=== PATIENT | male | born 1930 | race Caucasian/White ===

== ENCOUNTER → 2017-04-13 | Outpatient (CLI) | payer MEDICARE, OTHER ==
[~2017-04-13] MED LIST: ALBU18HF INH; ALBU2.5V NEB; ALBU6.7H INH; ALPR0.5T6 PO; AMLO1TAB5 PO; AMLO5TAB2 PO; AMLO5TAB4 PO; ASPI-496 PO; ASPI-515 PO; ASPI-650 PO; ATOR40TA78 PO; BUDE0.5A INH; CALC1TAB PO; CALC200T24 PO; DONE10TA7 PO; DOXY100T PO; DUTA0.5C PO; FENO145T32 PO; FURO20TA3 PO; FURO40TA6 PO; LEVO100T41 PO; LEVO125T5 PO; METO100T5 PO; MULT-717 PO; OMEG1CAP2 PO; OXYC-302 PO; PANT40TA3 PO; POLY17PO3 PO; POTA10TA11 PO; POTA10TA5 PO; POTA20TA14 PO; POTA20TA6 PO; RIVA1PAT22 TD; SACU1TAB4 PO; SENN1TAB67 PO; SENN1TAB7 PO; SITA100T PO; TAMS0.4C2 PO; TELM80TA PO; VENL150C PO; VENL50TA2 PO
== END | disposition home or self-care (01) ==
LOC: CFH 12:32
PROVIDERS: ATTEND Internal Medicine Cardiovascular Disease
DX: I51.7 Cardiomegaly (principal); I08.1 Rheumatic disorders of both mitral and tricuspid valves; I37.1 Nonrheumatic pulmonary valve insufficiency; E11.9 Type 2 diabetes mellitus without complications; I10 Essential (primary) hypertension; E78.5 Hyperlipidemia, unspecified
CPT/HCPCS: 93306

== ENCOUNTER → 2018-05-08 | Outpatient (CLI) | payer MEDICARE, OTHER ==
[~2018-05-08] MED LIST changes: -LEVO100T41 PO; +LEVO100T74 PO
== END | disposition home or self-care (01) ==
LOC: MRI 11:03
PROVIDERS: ATTEND Nurse Practitioner Family
DX: M47.896 Other spondylosis, lumbar region (principal); Z91.81 History of falling
CPT/HCPCS: 72110; 72220

== ENCOUNTER → 2018-08-09 | Outpatient (CLI) | payer MEDICARE, OTHER ==
[~2018-08-09] MED LIST changes: -AMLO5TAB2 PO; +AMLO5TAB7 PO; -SENN1TAB7 PO; +SENN1TAB8 PO
== END | disposition home or self-care (01) ==
LOC: CFH 11:53
PROVIDERS: ATTEND Nurse Practitioner Family
DX: N64.4 Mastodynia (principal); N64.59 Other signs and symptoms in breast
CPT/HCPCS: 77066

== ENCOUNTER 2020-04-16 10:03 | Emergency (ER) | payer MEDICARE, OTHER ==
[~2020-04-16] VITALS: Ht 182.9 cm; Wt 75.0 kg
[~2020-04-16 10:03] MED LIST changes: -ALBU6.7H INH; +ALBU6.7H8 INH; +AMLO-150 PO; -AMLO5TAB7 PO; +POLY17PO29 PO; -POLY17PO3 PO; +SENN-177 PO; -SENN1TAB8 PO; -VENL50TA2 PO; +VENL50TA42 PO
[2020-04-16] MEDS ORDERED: ONDANSETRON 2MG/ML, 2ML ONE (10:29)
[2020-04-16] MEDS ORDERED: ONDANSETRON 2MG/ML, 2ML IVPush ONE (10:30)
[2020-04-16] MEDS ORDERED: SODIUM CHLORIDE FLUSH 10ML SYR IVF ONE (10:30)
[2020-04-16 10:49] LABS: BASOPHILS # (AUTO) 0.03 x10^3/uL (0-0.1); BASOPHILS % (AUTO) 1 % (0-1); EOSINOPHILS # (AUTO) 0.03 x10^3/uL (0-0.4); EOSINOPHILS % (AUTO) 1 % (1-7); LYMPHOCYTES # (AUTO) 0.85 x10^3/uL (1-3.4); LYMPHOCYTES % (AUTO) 15 % (22-44); MD NO; MEAN CORPUSCULAR HEMOGLOBIN 32.7 pg (27.5-34.5); MEAN CORPUSCULAR HGB CONC 33.8 g/dL (33.2-36.2); MEAN PLATELET VOLUME 8.4 fL (7.4-10.4); MONOCYTES # (AUTO) 0.24 x10^3/uL (0.2-0.8); MONOCYTES % (AUTO) 4 % (2-9); NEUTROPHILS # (AUTO) 4.45 x10^3/uL (1.8-6.8); NEUTROPHILS % (AUTO) 80 % (42-75); PLATELET COUNT 144 x10^3/uL (130-400); RED BLOOD COUNT 4.16 x10^6/uL (4.38-5.82); RED CELL DISTRIBUTION WIDTH 14.8 % (9.4-14.8)
[2020-04-16 10:57] LABS: ALANINE AMINOTRANSFERASE 23 U/L (12-78); ALBUMIN 3.3 g/dL (3.4-5.0); ANION GAP 8 mmol/L (5-15); CALCIUM 8.4 mg/dL (8.5-10.1); CHLORIDE 113 mmol/L (98-107); CREATININE 1.44 mg/dL (0.7-1.3)
[2020-04-16 11:02] LABS: ALKALINE PHOSPHATASE 75 U/L (45-117); BILIRUBIN,TOTAL 0.5 mg/dL (0.2-1.0); TOTAL PROTEIN 7.4 g/dL (6.4-8.2); TROPONIN I < 0.015 ng/mL (0.000-0.045)
[2020-04-16 11:06] LABS: MICROSCOPIC NOT IND
--- NOTE | 2020-04-16 11:35 | NUR ---
PT RESTING IN BED, CALL LIGHT IN REACH.
[2020-04-16] MEDS ORDERED: OMNIPAQUE 350 MG/ML, 100ML BOTTLE ONE (11:41)
[2020-04-16] MEDS ORDERED: ONDANSETRON ODT 4 MG PO ONE (12:00)
--- NOTE | 2020-04-16 12:29 | NUR ---
DISCHARGE PLAN DISCUSSED ANANDA RAVI
[2020-04-16] MEDS ORDERED: ONDANSETRON ODT 4 MG ONE (12:36)
--- NOTE | 2020-04-16 12:43 | NUR ---
Nausea continues, ermd notified
[2020-04-16] MEDS ORDERED: METOCLOPRAMIDE 5 MG/ML, 2ML IVPush ONE (13:00)
[2020-04-16] MEDS ORDERED: METOCLOPRAMIDE 5 MG/ML, 2ML ONE (13:04)
[2020-04-16 14:11] VITALS: BP 150/73
--- NOTE | 2020-04-16 14:13 | NUR ---
BREAK RN: PT CONTINUES TO C/O NAUSEA DESPITE MEDS GIVEN. PTS DAUGHTER, MACK CALLED AND SAID THAT SHE FEELS THAT THE NAUSEA STARTED AFTER HE STARTED TAKING A NEW ANTIDEPRESSANT. PH: [phone]
--- NOTE | 2020-04-16 14:29 | NUR ---
PETAR RAVI AT BEDSIDE FOR EVALUATION
--- NOTE | 2020-04-16 15:00 | NUR ---
UPDATE OF POC PROVIDED TO [facility], WILL SEND BUS TO [employer] EXAMINER PATIENT. DISCHARGE INSTRUCTIONS REVIEWED
== END 2020-04-16 15:24 | disposition home or self-care (01) ==
LOC: ED 10:30
DX: R11.2 Nausea with vomiting, unspecified (principal); R10.31 Right lower quadrant pain; R94.31 Abnormal electrocardiogram [ECG] [EKG]; R07.9 Chest pain, unspecified; I10 Essential (primary) hypertension; E11.9 Type 2 diabetes mellitus without complications; E03.9 Hypothyroidism, unspecified; E78.00 Pure hypercholesterolemia, unspecified; Z98.61 Coronary angioplasty status; Z90.89 Acquired absence of other organs
CPT/HCPCS: 36415; 71045; 74177; 80053; 81003; 83605; 83735; 84443; 84484; 85025; 93005; 96374; 96375; 99285; J2405; J2765; Q0162; Q9967

== ENCOUNTER 2021-01-19 20:17 | Inpatient (IN) | payer MEDICARE, OTHER ==
[~2021-01-19] VITALS: Ht 177.8 cm; Wt 90.2 kg
[~2021-01-19 20:17] MED LIST changes: -ALPR0.5T6 PO; +ALPR0.5T93 PO; -ASPI-515 PO; -ASPI-650 PO; +ASPI-963 PO; +ASPI325T20 PO; -OXYC-302 PO; +OXYC1TAB14 PO; -POLY17PO29 PO; +POLY17PO50 PO
--- NOTE | 2021-01-19 20:46 | NUR ---
Pt BIBA with c/o multiple mechanical ground level falls over the last 5 days. Pt states his knees just give out on him and he falls. Pt c/o right hip pain. + CSM to foot, no shortening or rotation. Pt received 100mcg of fentanyl by EMS and has minimal pain at this time. Pt denies LOC. Pt with no further complaints. Warm blanket given, call light in reach. Will monitor.
[2021-01-19 20:48] LABS: BASOPHILS % (AUTO) 1 % (0-1); EOSINOPHILS % (AUTO) 4 % (1-7); LYMPHOCYTES % (AUTO) 18 % (22-44); MEAN CORPUSCULAR HEMOGLOBIN 32.2 pg (27.5-34.5); MEAN CORPUSCULAR HGB CONC 33.3 g/dL (33.2-36.2); MEAN PLATELET VOLUME 8.8 fL (7.4-10.4); MONOCYTES % (AUTO) 7 % (2-9); NEUTROPHILS % (AUTO) 70 % (42-75); PLATELET COUNT 132 x10^3/uL (130-400); RED BLOOD COUNT 3.86 x10^6/uL (4.38-5.82); RED CELL DISTRIBUTION WIDTH 13.3 % (9.4-14.8)
[2021-01-19 20:50] LABS: MD NO
[2021-01-19 20:59] LABS: INTERNATIONAL NORMALIZED RATIO 1.14 (0.93-1.1); PROTHROMBIN TIME 12.2 Seconds (9.6-11.5)
[2021-01-19 21:12] LABS: ALBUMIN 3.2 g/dL (3.4-5.0); ANION GAP 7 mmol/L (5-15); CALCIUM 8.4 mg/dL (8.5-10.1); CHLORIDE 110 mmol/L (98-107); CREATININE 1.05 mg/dL (0.7-1.3)
[2021-01-19 21:16] LABS: TROPONIN I < 0.015 ng/mL (0.000-0.045)
--- NOTE | 2021-01-19 22:49 | NUR ---
Pt A&O, + CSM remains to feet. Warm blanket given. Report called to Tala CLAUDIO. Pt to floor with tech.
[2021-01-19 23:24] VITALS: BP 154/69
[2021-01-19] MEDS ORDERED: ONDANSETRON ODT 4 MG PO PRN (23:30)
[2021-01-19] MEDS ORDERED: SODIUM CHLORIDE 0.9% 1,000 ML IV SCH (23:30)
[2021-01-19] MEDS ORDERED: POLYETHYLENE GLYCOL 17 GM PACKET PO PRN (23:30)
[2021-01-19] MEDS ORDERED: BISACODYL 10 MG SUPP PR PRN (23:30)
[2021-01-20] MEDS: LIDODERM 5% PATCH TD SCH ×2 (00:08→23:00)
[2021-01-20 05:14] VITALS: BP 150/72
[2021-01-20 05:18] LABS: BASOPHILS % (AUTO) 1 % (0-1); EOSINOPHILS % (AUTO) 5 % (1-7); LYMPHOCYTES % (AUTO) 24 % (22-44); MEAN CORPUSCULAR HEMOGLOBIN 32.8 pg (27.5-34.5); MEAN CORPUSCULAR HGB CONC 33.9 g/dL (33.2-36.2); MEAN PLATELET VOLUME 9.5 fL (7.4-10.4); MONOCYTES % (AUTO) 8 % (2-9); NEUTROPHILS % (AUTO) 62 % (42-75); PLATELET COUNT 118 x10^3/uL (130-400); RED CELL DISTRIBUTION WIDTH 13.5 % (9.4-14.8)
[2021-01-20 05:21] LABS: MD NO
[2021-01-20 05:23] LABS: ANION GAP 7 mmol/L (5-15); CALCIUM 8.1 mg/dL (8.5-10.1); CHLORIDE 111 mmol/L (98-107); CREATININE 1.02 mg/dL (0.7-1.3)
[2021-01-20 07:52] VITALS: BP 155/85
[2021-01-20] MEDS: DONEPEZIL 10 MG TABLET PO SCH (08:59)
[2021-01-20] MEDS: DUTASTERIDE 0.5 MG CAPSULE PO SCH (08:59)
[2021-01-20] MEDS: OXYcodone IR 5MG TABLET PO PRN (08:59)
[2021-01-20] MEDS: POTASSIUM CHLORIDE 20 MEQ TAB.ER.PRT PO SCH (08:59)
[2021-01-20] MEDS: SENNA/DOCUSATE TABLET PO SCH (08:59)
[2021-01-20] MEDS: DOXYCYCLINE 100MG TABLET PO SCH ×2 (09:00→20:25)
[2021-01-20] MEDS: VENLAFAXINE 75 MG CAP ER PO SCH (09:00)
[2021-01-20] MEDS: ASPIRIN 81 MG TABLET EC PO SCH (09:00)
[2021-01-20] MEDS: FUROSEMIDE 20 MG TABLET PO SCH (09:00)
[2021-01-20] MEDS: TEMPLATE NON-FORMULARY MED. (Sacubitril/Valsartan (Entresto 97 mg-103 mg Tablet) 1 TAB) HOMEMEDPO SCH ×2 (09:00→21:00)
[2021-01-20] MEDS: LEVOTHYROXINE 125 MCG TABLET PO SCH (09:00)
[2021-01-20] MEDS: AMLODIPINE 5 MG TABLET PO SCH (09:00)
[2021-01-20] MEDS: TAMSULOSIN 0.4 MG CAP.ER.24H PO SCH (09:00)
[2021-01-20] MEDS: MULTIVITAMIN 1 TABLET PO SCH (11:10)
[2021-01-20] MEDS: CALCIUM/VITAMIN D3 250-125 TABLET PO SCH (11:10)
[2021-01-20 14:25] VITALS: BP 161/76
[2021-01-20 18:10] VITALS: BP 159/80
[2021-01-20 22:57] VITALS: BP 144/78
[2021-01-21 04:50] LABS: BASOPHILS % (AUTO) 1 % (0-1); EOSINOPHILS % (AUTO) 5 % (1-7); LYMPHOCYTES % (AUTO) 22 % (22-44); MEAN CORPUSCULAR HEMOGLOBIN 32.5 pg (27.5-34.5); MEAN CORPUSCULAR HGB CONC 34.3 g/dL (33.2-36.2); MEAN PLATELET VOLUME 9.5 fL (7.4-10.4); MONOCYTES % (AUTO) 7 % (2-9); NEUTROPHILS % (AUTO) 66 % (42-75); PLATELET COUNT 119 x10^3/uL (130-400); RED BLOOD COUNT 3.77 x10^6/uL (4.38-5.82); RED CELL DISTRIBUTION WIDTH 13.4 % (9.4-14.8)
[2021-01-21 04:51] LABS: MD NO
[2021-01-21 05:03] LABS: ANION GAP 5 mmol/L (5-15); CALCIUM 8.3 mg/dL (8.5-10.1); CHLORIDE 109 mmol/L (98-107); CREATININE 0.91 mg/dL (0.7-1.3)
[2021-01-21 07:19] VITALS: BP 165/83
[2021-01-21] MEDS: FUROSEMIDE 20 MG TABLET PO SCH (07:58)
[2021-01-21] MEDS: DUTASTERIDE 0.5 MG CAPSULE PO SCH (07:58)
[2021-01-21] MEDS: ASPIRIN 81 MG TABLET EC PO SCH (07:58)
[2021-01-21] MEDS: SENNA/DOCUSATE TABLET PO SCH (07:58)
[2021-01-21] MEDS: DONEPEZIL 10 MG TABLET PO SCH (07:58)
[2021-01-21] MEDS: DOXYCYCLINE 100MG TABLET PO SCH ×2 (07:58→20:01)
[2021-01-21] MEDS: TAMSULOSIN 0.4 MG CAP.ER.24H PO SCH (07:58)
[2021-01-21] MEDS: AMLODIPINE 5 MG TABLET PO SCH (07:58)
[2021-01-21] MEDS: LEVOTHYROXINE 125 MCG TABLET PO SCH (07:58)
[2021-01-21] MEDS: POTASSIUM CHLORIDE 20 MEQ TAB.ER.PRT PO SCH (07:58)
[2021-01-21] MEDS: TEMPLATE NON-FORMULARY MED. (Sacubitril/Valsartan (Entresto 97 mg-103 mg Tablet) 1 TAB) HOMEMEDPO SCH ×2 (07:59→20:02)
[2021-01-21] MEDS: VENLAFAXINE 75 MG CAP ER PO SCH (07:59)
[2021-01-21] MEDS: ACETAMINOPHEN 325 MG TABLET PO PRN ×2 (09:56→20:01)
[2021-01-21] MEDS: LIDODERM REMOVE PATCH NOTE XX SCH (11:01)
[2021-01-21] MEDS: CALCIUM/VITAMIN D3 250-125 TABLET PO SCH (11:26)
[2021-01-21] MEDS: MULTIVITAMIN 1 TABLET PO SCH (11:26)
[2021-01-21 12:55] VITALS: BP 165/88
[2021-01-21 18:08] VITALS: BP 154/77
[2021-01-21] MEDS: OXYcodone IR 5MG TABLET PO PRN (20:01)
[2021-01-21] MEDS: LIDODERM 5% PATCH TD SCH (22:58)
[2021-01-22 01:10] VITALS: BP 139/73
[2021-01-22] MEDS: OXYcodone IR 5MG TABLET PO PRN (05:42)
[2021-01-22] MEDS: LEVOTHYROXINE 125 MCG TABLET PO SCH (05:42)
[2021-01-22 05:49] LABS: BASOPHILS % (AUTO) 1 % (0-1); EOSINOPHILS % (AUTO) 4 % (1-7); LYMPHOCYTES % (AUTO) 24 % (22-44); MEAN CORPUSCULAR HEMOGLOBIN 32.6 pg (27.5-34.5); MEAN CORPUSCULAR HGB CONC 34.5 g/dL (33.2-36.2); MEAN PLATELET VOLUME 9.4 fL (7.4-10.4); MONOCYTES % (AUTO) 8 % (2-9); NEUTROPHILS % (AUTO) 64 % (42-75); PLATELET COUNT 127 x10^3/uL (130-400); RED CELL DISTRIBUTION WIDTH 13.4 % (9.4-14.8)
[2021-01-22 05:54] LABS: MD NO
[2021-01-22 07:32] VITALS: BP 154/76
[2021-01-22] MEDS: DUTASTERIDE 0.5 MG CAPSULE PO SCH (08:18)
[2021-01-22] MEDS: POTASSIUM CHLORIDE 20 MEQ TAB.ER.PRT PO SCH (08:18)
[2021-01-22] MEDS: DOXYCYCLINE 100MG TABLET PO SCH (08:18)
[2021-01-22] MEDS: ASPIRIN 81 MG TABLET EC PO SCH (08:18)
[2021-01-22] MEDS: VENLAFAXINE 75 MG CAP ER PO SCH (08:18)
[2021-01-22] MEDS: ACETAMINOPHEN 325 MG TABLET PO PRN (08:18)
[2021-01-22] MEDS: TAMSULOSIN 0.4 MG CAP.ER.24H PO SCH (08:19)
[2021-01-22] MEDS: DONEPEZIL 10 MG TABLET PO SCH (08:19)
[2021-01-22] MEDS: AMLODIPINE 5 MG TABLET PO SCH (08:19)
[2021-01-22] MEDS: SENNA/DOCUSATE TABLET PO SCH (08:19)
[2021-01-22] MEDS: FUROSEMIDE 20 MG TABLET PO SCH (08:19)
[2021-01-22] MEDS: TEMPLATE NON-FORMULARY MED. (Sacubitril/Valsartan (Entresto 97 mg-103 mg Tablet) 1 TAB) HOMEMEDPO SCH (08:22)
[2021-01-22] MEDS: LIDODERM REMOVE PATCH NOTE XX SCH (11:04)
[2021-01-22] MEDS ORDERED: OXYC5TAB98 PO (11:05)
[2021-01-22] MEDS: CALCIUM/VITAMIN D3 250-125 TABLET PO SCH (11:12)
[2021-01-22] MEDS: MULTIVITAMIN 1 TABLET PO SCH (11:12)
[2021-01-22 13:25] VITALS: BP 160/91
== END 2021-01-22 14:05 | DRG 552 ==
LOC: ED 21:53 → EDIP 23:21 → 4NE 23:32
PROVIDERS: ADMIT Family Medicine; ATTEND Family Medicine
DX: S32.2XXA Fracture of coccyx, initial encounter for closed fracture (principal); I13.0 Hypertensive heart and chronic kidney disease with heart failure and stage 1 through stage 4 chronic kidney disease, or unspecified chronic kidney disease; I50.22 Chronic systolic (congestive) heart failure; D64.9 Anemia, unspecified; E03.9 Hypothyroidism, unspecified; E11.22 Type 2 diabetes mellitus with diabetic chronic kidney disease; E78.00 Pure hypercholesterolemia, unspecified; E78.5 Hyperlipidemia, unspecified; F02.80 Dementia in other diseases classified elsewhere, unspecified severity, without behavioral disturbance, psychotic disturbance, mood disturbance, and anxiety; S32.10XA Unspecified fracture of sacrum, initial encounter for closed fracture; F41.9 Anxiety disorder, unspecified; G30.9 Alzheimer's disease, unspecified; G89.11 Acute pain due to trauma; I25.5 Ischemic cardiomyopathy; M47.812 Spondylosis without myelopathy or radiculopathy, cervical region; N40.0 Benign prostatic hyperplasia without lower urinary tract symptoms; N18.2 Chronic kidney disease, stage 2 (mild); R29.6 Repeated falls; S30.0XXA Contusion of lower back and pelvis, initial encounter; Z66 Do not resuscitate; W18.39XA Other fall on same level, initial encounter; Z82.49 Family history of ischemic heart disease and other diseases of the circulatory system; Z87.891 Personal history of nicotine dependence; Y92.009 Unspecified place in unspecified non-institutional (private) residence as the place of occurrence of the external cause; Y93.89 Activity, other specified; Y99.8 Other external cause status
CPT/HCPCS: 36415; 70450; 71045; 72125; 80048; 80320; 82040; 84484; 85025; 85610; 93005; 99285; G0378; G0480; J7030